=== PATIENT | female | born 1995 | race Caucasian/White ===

== ENCOUNTER 2022-07-13 07:33 | Inpatient (IN) ==
[2022-07-13] MEDS ORDERED: OXYTOCIN 30 UNITS/500 ML BAG IV PRN ×3 (07:46→18:34)
[2022-07-13 08:32] LABS: Hematocrit (blood only) 32.2 % (34.1-44.9); Hemoglobin 10.6 g/dl (12.0-16.0); Mean Corpuscular Hemoglobin 28.7 pg (25.0-34.0); Mean Corpuscular Hgb Conc 32.9 g/dL (32.0-36.0); Mean Corpuscular Volume 87.3 fL (80.0-100.0); Mean Platelet Volume 11.5 fL (9.4-12.3); Platelet Count 158 K/uL (130-400); RDW Coefficient of Variation 12.8 % (11.5-14.5); RDW Standard Deviation 40.6 fL (36.4-46.3); Red Blood Count 3.69 M/uL (3.93-5.22); White Blood Count 10.53 K/ul (4.8-10.8)
--- NOTE | 2022-07-13 08:40 | History & Physical Report ---
Date of Service July 13, 2022 Assessment & Plan (1) IUGR (intrauterine growth restriction) affecting care of mother: Plan 26-year-old at 30 weeks 6 days gestational age presents for induction of labor for IUGR with AC at 3rd percentile 1. fetus: Cat 1 2. Labor: s/p carbajal, Pitocin 3. GBS negative 4. Vitals normal Admission and Anticipated Discharge Date Admission Date: July 13, 2022 History of Present Illness Primary Care Provider: NO PCP 26yo at 38w6d GA IOL for IUGR with AC at 3%. Cervical Carbajal placed last night. Patient reporting irregular contractions. Denies leakage of fluid or vaginal bleeding. Allergies Allergy/AdvReac Type Severity Reaction Status Date / Time No Known Allergies Allergy Verified 07/11/22 09:59 Home Medications Medication Instructions Recorded Confirmed Type arginine (L-arginine) 1,000 mg PO BID 06/02/22 07/11/22 History aspirin [Adult Low Dose Aspirin] PO 06/02/22 07/11/22 History cholecalciferol (vitamin D3) PO 06/02/22 07/11/22 History doxylamine-pyridoxine (vit B6) PO 06/02/22 07/11/22 History [Bonjesta] iron heme polypep-folic acid PO 06/02/22 07/11/22 History [Proferrin-Forte] prenat.vits,odilon,[id number] 1 tab PO DAILY 06/02/22 07/11/22 History Patient History Medical History (Updated 06/02/22 @ 14:33 by Danya Jerez) Anxiety History of chicken pox Surgical History (Updated 06/02/22 @ 14:33 by Danya Jerez) S/P wisdom tooth extraction Family History (Updated 06/02/22 @ 14:08 by Danya Jerez) Mother Hypertension Father Hypertension Denies family history of Ovarian cancer Breast cancer Colorectal cancer Social History (Updated 06/02/22 @ 14:10 by Danya Jerez) Smoking Status: Never smoker Hx Alcohol Use: No Hx Substance Use: No Preferred Language: Qatari Sampler And Test Preparer Required: No Beliefs That Will Affect Care: None marital status: marital status details: Praveen Kruger (32) [phone] Current Living Situation: Spouse Current Living Situation Comment: lives with spouse, in-laws, cats-spouse changing litter current occupational status: employed current occupation: RN-Travel nurse Other Information That Helps Us Care for You: No Feels Safe at Home: Yes Safety Concerns: Feels Safe At This Time Assistive Devices: None Physical Exam Gastrointestinal (Abdomen): Inspection/Auscultation: abdomen normal to inspection Percussion/Palpation: abdomen soft; abdomen nontender, no guarding and abdomen not rigid Genitourinary: Manual OB Exam: + cervical dilation 3 cm, + cervical effacement 70% and + station -1 OB Exam Monitor Tracing: + external FHT monitor used, + external uterine monitor used and + category I; no normal FHT variability, no early decelerations present, no late decelerations present and no variable decelerations Results & Data ([facility]) Vital Signs (Past 12 Hours) Vital Signs Pulse BP 07/13/22 07:46 80 130/84 Coding Level of Care Code None Diagnoses IUGR (intrauterine growth restriction) affecting care of mother O36.5990
[2022-07-13] MEDS: LACTATED RINGER'S 1,000 ML IV PRN ×2 (09:13→14:15)
[2022-07-13] MEDS ORDERED: SODIUM CHLORIDE 0.9% INJ 10 ML VIAL ONE (14:01)
[2022-07-13] MEDS ORDERED: BUPIVACAINE 0.25% 30 ML VIAL ONE (14:01)
[2022-07-13] MEDS ORDERED: ePHEDrine sulfate 50 MG/ML AMP ONE (14:01)
[2022-07-13] MEDS ORDERED: fentaNYL citrate 100 MCG/2 ML VIAL ONE (14:01)
[2022-07-13] MEDS ORDERED: LIDOCAINE 2%/EPINEPHRINE 1:200,000 20 ML SDV ONE (14:01)
[2022-07-13] MEDS ORDERED: fentaNYL 2MCG/ML ROPIVACAINE 1.25MG/ML 100 ML BAG EPI ONE (14:02)
--- NOTE | 2022-07-13 14:51 | Anesthesiology Consultation ---
Date of Service July 13, 2022 Assessment & Plan Chart Review Chart Review: Acceptable Risk for Labor Epidural Consults Requested none History Height/Weight Height: 5 ft 7 in Weight: 69.4 kg Allergies Allergy/AdvReac Type Severity Reaction Status Date / Time No Known Allergies Allergy Verified 07/13/22 10:47 Medications Home Medications Medication Instructions Recorded Confirmed Last Taken arginine (L-arginine) 1,000 mg PO BID 06/02/22 07/13/22 07/12/22 21:00 cholecalciferol (vitamin D3) 1 tab PO DAILY 06/02/22 07/13/22 07/12/22 21:00 doxylamine-pyridoxine (vit B6) 1 tab PO DAILY 06/02/22 07/13/22 07/12/22 21:00 [Bonjesta] iron heme polypep-folic acid 1 tab PO DAILY 06/02/22 07/13/22 07/12/22 21:00 [Proferrin-Forte] prenat.vits,odilon,nti-gmkz-[id number] 1 tab PO DAILY 06/02/22 07/13/22 07/12/22 21:00 Active Medications Generic Name Dose Route Start Last Admin Trade Name Freq PRN Reason Stop Dose Admin Oxytocin 30 units in 500 mls @ 12 mls/hr 07/13/22 07:46 07/13/22 12:29 Pitocin IV 07/15/22 07:45 0.72 units/hr .Q24H PRN 12 mls/hr Labor Induction/Augmentation Titration Protocol 0.72 UNITS/HR Lactated Ringer's 1,000 mls @ 125 mls/hr 07/13/22 07:46 07/13/22 14:15 Lr IV 07/15/22 07:45 999 mls/hr .Q8H PRN Administration L&D Protocol Protocol Past Medical History Medical History Anxiety History of chicken pox Past Family History Family History Mother Hypertension Father Hypertension Denies family history of Ovarian cancer Breast cancer Colorectal cancer Past Surgical History Surgical History S/P wisdom tooth extraction Social History Smoking Status: Never smoker Hx Alcohol Use: No Hx Substance Use: No substance use type: does not use Physical Exam Vital Signs Last Vital Signs Temp 36.8 C 07/13/22 07:46 Pulse 81 07/13/22 14:48 Resp 20 07/13/22 07:46 BP 110/69 07/13/22 14:48 Pulse Ox 100 07/13/22 14:45 Testing Laboratory Results 07/13/22 08:17
[2022-07-13] MEDS ORDERED: diphenhydrAMINE 50 MG/ML VIAL IV PRN (14:52)
[2022-07-13] MEDS ORDERED: fentaNYL 2MCG/ML ROPIVACAINE 1.25MG/ML 100 ML BAG EPI PRN (14:52)
[2022-07-13] MEDS ORDERED: ePHEDrine sulfate 50 MG/ML AMP IV PRN (14:52)
[2022-07-13] MEDS ORDERED: NALOXONE HCL 1 MG in SODIUM CHLORIDE 0.9% 1000ML 1,000 ML IV PRN (14:52)
[2022-07-13] MEDS ORDERED: NALOXONE HCL 0.4 MG/1 ML VIAL/CARP IV PRN (14:52)
[2022-07-13] MEDS ORDERED: NALBUPHINE HCL INJ 10 MG/ML AMP IV PRN (14:52)
[2022-07-13] MEDS ORDERED: HYDROCORTISONE ACETATE 25 MG SUPP PR PRN (18:34)
[2022-07-13] MEDS ORDERED: DIPHTHERIA/TETANUS/PERTUSSIS 0.5 ML SYR/VIAL IM ONE (18:34)
[2022-07-13] MEDS ORDERED: BENZOCAINE 20% AER SPR 82.5 GM CAN EXT PRN (18:34)
[2022-07-13] MEDS ORDERED: ACETAMINOPHEN 325 MG TAB PO PRN (18:34)
[2022-07-13] MEDS ORDERED: bisacodyL 10 MG SUPP PR PRN (18:34)
--- NOTE | 2022-07-13 20:21 | Anesthesia Procedure Note ---
Date of Service July 13, 2022 Anesthesia Post Epidural Note Vital Signs Vital Signs: Temp Pulse Resp BP Pulse Ox 36.8 C 93 H 18 142/86 H 97 07/13/22 15:11 07/13/22 20:18 07/13/22 16:15 07/13/22 20:18 07/13/22 18:20 Notes Mental Status: alert / awake / arousable and participated in evaluation Nausea / Vomiting: adequately controlled Pain: adequately controlled Airway Patency, RR, SpO2: stable & adequate BP & HR: stable & adequate Hydration State: stable & adequate Neuraxial Anesthesia: was administered and sensory block is resolving Anesthetic Complications: no major complications apparent Epidural: Removed without complications and With tip intact
[2022-07-14] MEDS: IBUPROFEN 600 MG TAB PO PRN ×2 (00:15→16:49)
[2022-07-14] MEDS: DOCUSATE SODIUM 100 MG CAP PO SCH ×3 (00:16→21:35)
--- NOTE | 2022-07-14 06:23 | Obstetrical Progress Note ---
Date of Service <Susan Roberts DO - Last Filed: 07/14/22 07:08> July 14, 2022 Assessment & Plan <Susan Roberts DO - Last Filed: 07/14/22 07:08> (1) IUGR (intrauterine growth restriction) affecting care of mother: Plan s/p PPD 1: -Vital signs reviewed and WNL, Tmax at 37.2 -Hemoglobin reviewed, 10.6 (07/13) -Patient is doing well clinically -Encourage ambulation, monitor and treat pain with motrin PRN, monitor lochia -Continue regular diet -Encourage breast feeding <Josue Perdue MD - Last Filed: 07/14/22 07:35> (1) IUGR (intrauterine growth restriction) affecting care of mother: Subjective <Susan Roberts DO - Last Filed: 07/14/22 07:08> Karen is a 26 y/o female who is PPD #1 following at 38 6/7 weeks. Her was complicated by IUGR and AC 3%ile. Patient was seen and examined at bedside. She reports feeling well overall this morning. 3/10 pain well managed on analgesics, states she recently took Tylenol which is helping. Voiding without issue, notes a little burning with urination as she had a tear during delivery. Tolerating meals overnight with no nausea or vomiting. Has been able to ambulate some. Endorses passing gas.Has some persistent lochia with some improvement this morning. Currently breast feeding. Constitutional: no fever, no chills or no sweats Respiratory: no cough, no dyspnea or no wheezing Cardiovascular: no chest pain, no palpitations or no calf pain Breast: no breast pain Neurologic: no headache(s) Physical Exam <Susan Roberts DO - Last Filed: 07/14/22 07:08> Constitutional WD/WN, vitals as above no acute distress Respiratory no respiratory distress Auscultation: lungs clear to auscultation bilaterally; no rales, no rhonchi and no wheezes Cardiovascular RRR, no murmur, no edema Extremities: no calf tenderness and no edema Negative Adonis's sign bilaterally. Gastrointestinal (Abdomen) Inspection/Auscultation: normal bowel sounds Genitourinary Uterine fundus firm, palpable below the umbilicus. Results & Data ([facility]) <Susan Roberts, DO - Last Filed: 07/14/22 07:08> Vital Signs (Past 12 Hours) Vital Signs Temp Pulse Pulse Resp BP BP Pulse Ox 07/14/22 03:30 36.5 C 77 16 111/69 98 07/13/22 23:09 36.7 C 83 16 125/76 97 07/13/22 21:20 37.2 C 88 16 118/79 07/13/22 20:42 96 H 07/13/22 20:42 127/74 07/13/22 20:18 93 H 07/13/22 20:18 142/86 H 07/13/22 20:03 95 H 07/13/22 20:03 136/75 07/13/22 19:48 105 H 07/13/22 19:48 133/68 07/13/22 19:33 97 H 07/13/22 19:33 134/67 07/13/22 19:18 105 H 07/13/22 19:18 136/71 07/13/22 19:03 96 H 07/13/22 19:03 131/82 07/13/22 18:48 97 H 07/13/22 18:48 130/78 07/13/22 18:33 111 H 07/13/22 18:33 129/77 07/13/22 18:23 116 H 07/13/22 18:23 132/78 07/13/22 18:20 97 07/13/22 18:20 144 H O2 Del Method 07/14/22 03:30 Room Air 07/13/22 23:09 Room Air 07/13/22 21:20 07/13/22 20:42 07/13/22 20:42 07/13/22 20:18 07/13/22 20:18 07/13/22 20:03 07/13/22 20:03 07/13/22 19:48 07/13/22 19:48 07/13/22 19:33 07/13/22 19:33 07/13/22 19:18 07/13/22 19:18 07/13/22 19:03 07/13/22 19:03 07/13/22 18:48 07/13/22 18:48 07/13/22 18:33 07/13/22 18:33 07/13/22 18:23 07/13/22 18:23 07/13/22 18:20 07/13/22 18:20 <Josue Perdue MD - Last Filed: 07/14/22 07:35> Co-Signing Physician Notes Patient seen and evaluated with resident and agree with the above findings and plan. Doing well. Routine care Resident Activity Tracking <Susan Roberts DO - Last Filed: 07/14/22 07:08> Resident Involvement: Resident Care Provided Care Provided: OB Delivery
--- NOTE | 2022-07-14 06:58 | Delivery Summary ---
DATE OF SERVICE: 07/13/2022. PROCEDURE: Normal spontaneous vaginal delivery with right labial laceration repair. SURGEON: Josue Perdue MD PREOPERATIVE DIAGNOSES: 1. Single intrauterine at 38 weeks 6 days gestational age. 2. growth restriction with AC below 3rd percentile. POSTOPERATIVE DIAGNOSES: 1. Single intrauterine at 38 weeks 6 days gestational age. 2. growth restriction with AC below 3rd percentile. 3. Status post procedure. ESTIMATED BLOOD LOSS: 100 mL. DRAINS: Straight cath at the completion of the case. URINE OUTPUT: Per straight cath. COMPLICATIONS: None. FINDINGS: Viable male with weight and Apgars pending. INDICATIONS AND HOSPITAL COURSE: Karen is a 26-year-old G1, P0, admitted at 38 weeks 6 days gestatio nal age for induction of labor secondary to IUGR with AC at 3rd percentile. On initial evaluation, t he patient was found to be 3 cm dilated, 70% effaced, negative 1 station. She was started on oxytoci n per regular protocol and later underwent artificial rupture of membranes for clear fluid. The kayla ent received an epidural for anesthesia and progressed in labor to complete-complete, +2 station, at which time she felt the urge to push. The patient pushed for approximately 45 minutes to 1 hour for delivery. DESCRIPTION OF PROCEDURE: The patient progressed to 10 cm dilated, 100% effaced, positive 2 station, pushed over an intact perineum with epidural anesthesia, delivered a viable male with weight and Apgars as noted above. Head of the delivered in SANDY position, restituted to left transve rse. No nuchal cord was noted. The body and shoulders quickly followed. was noted to be vi gorous soon after delivery and a 1-minute delayed cord clamping was initiated. Cord was then double clamped and cut. Cord blood was obtained. Attention was then turned to delivery of the placenta, wh ich delivered intact, 3-vessel cord, gentle cord traction. On inspection of the perineum, vagina, ce rvix, there was noted to be a right labial laceration, which was repaired with 3-0 Vicryl with interr upted stitch. Needle, sponge, and instrument counts were correct at the completion of the case. Bot h mother and stable in the immediate post-delivery period. Job ID: [id number]
[2022-07-14] MEDS: PRENATAL VITAMIN 1 TAB PO SCH (08:35)
[2022-07-14] MEDS ORDERED: bisacodyL 5 MG TABEC PO SCH (20:00)
[2022-07-15] MEDS: IBUPROFEN 600 MG TAB PO PRN ×2 (00:03→10:28)
--- NOTE | 2022-07-15 06:34 | Obstetrical Progress Note ---
Date of Service <Susan Roberts DO - Last Filed: 07/15/22 07:59> July 15, 2022 Assessment & Plan <Susan Roberts DO - Last Filed: 07/15/22 07:59> (1) IUGR (intrauterine growth restriction) affecting care of mother: Plan s/p PPD 2: -Vital signs reviewed and WNL, Tmax at 37.2 -Hemoglobin reviewed, 10.6 (07/13) -Patient is doing well clinically -Encourage ambulation, monitor and treat pain with motrin PRN, monitor lochia -Continue regular diet -Encourage breast feeding -Discussed plan to discharge after baby's circumcision today <Golden Morales MD, FACOG - Last Filed: 07/15/22 08:01> (1) IUGR (intrauterine growth restriction) affecting care of mother: Subjective <Susan Roberts DO - Last Filed: 07/15/22 07:59> Karen is a 26 y/o female who is PPD #2 following at 38 6/7 weeks. Her was complicated by IUGR and AC 3%ile. Patient was seen and examined at bedside. She reports feeling well overall this morning. Pain well managed on analgesics. Voiding without issue, notes a little burning with urination as she had a tear during delivery. Tolerating meals overnight with no nausea or vomiting. Has been able to ambulate some. Endorses passing gas. Has some persistent lochia with some improvement this morning. Currently breast feeding. Awaiting baby's circumcision this morning. Constitutional: no fever, no chills or no sweats Respiratory: no cough, no dyspnea or no wheezing Cardiovascular: no chest pain, no palpitations or no calf pain Breast: no breast pain Genitourinary (female): no dysuria Neurologic: no headache(s) Physical Exam <Susan Roberts DO - Last Filed: 07/15/22 07:59> Constitutional WD/WN, vitals as above no acute distress Respiratory no respiratory distress Auscultation: lungs clear to auscultation bilaterally; no rales, no rhonchi and no wheezes Cardiovascular RRR, no murmur, no edema Extremities: no calf tenderness and no edema Gastrointestinal (Abdomen) Inspection/Auscultation: normal bowel sounds Genitourinary Uterine fundus is firm, palpable below umbilicus Results & Data ([facility]) <Susan Roberts DO - Last Filed: 07/15/22 07:59> Vital Signs (Past 12 Hours) Vital Signs Temp Pulse Resp BP Pulse Ox O2 Del Method 07/15/22 00:00 36.4 C L 67 16 118/82 98 Room Air 07/14/22 20:00 36.6 C 81 16 118/82 98 Room Air <Golden Morales MD, FACOG - Last Filed: 07/15/22 08:01> Co-Signing Physician Notes Resident Physician Supervision Note: I was present with [Name of resident] during the history and exam. I discussed the case with the resident and agree with the findings and plan as documented in the note. Any exceptions or clarifications are listed here: [None] Documented By: Golden Morales MD, FACOG
[2022-07-15] MEDS: PRENATAL VITAMIN 1 TAB PO SCH (08:11)
[2022-07-15] MEDS: DOCUSATE SODIUM 100 MG CAP PO SCH (08:12)
== END 2022-07-15 13:01 | disposition home or self-care (01) | DRG 807 ==
LOC: 4S1 07:33 → 4E2 21:18